=== PATIENT | male | born 1995 | race Caucasian/White ===

== ENCOUNTER → 2024-05-11 | Outpatient (CLI) | payer MEDICAID, SELFPAY ==
--- NOTE | 2024-05-11 | XR_ITS ---
Examination: Knee, right , 3 views Technique: Knee AP, lateral, oblique 3 views, standing Date and time of exam: May 11, 2024 1216 hours INDICATIONS: Right knee pain months FINDINGS: Moderate to advanced narrowing medial lateral joint spaces Moderate narrowing patellofemoral joint Moderate knee effusion Tiny old bone density 3 mm projecting below the patella on the lateral view IMPRESSION: Moderate to advanced tricompartment osteoarthritis Moderate knee effusion No acute fracture
== END | disposition home or self-care (01) ==
LOC: CDIM 10:49
PROVIDERS: PCP Internal Medicine Rheumatology; Referring Provider Internal Medicine Rheumatology; Visit Provider Internal Medicine Rheumatology
DX: M25.561 Pain in right knee (principal); M17.11 Unilateral primary osteoarthritis, right knee; M25.461 Effusion, right knee
CPT/HCPCS: 73564